=== PATIENT | male | born 1945 | race Caucasian/White ===

== ENCOUNTER 2017-10-21 10:03 | Outpatient (CLI) | payer OTHER | END 2017-10-21 10:04 | disposition home or self-care (01) | LOC: RT 10:03 | PROVIDERS: ATTEND Internal Medicine Gastroenterology | DX: E11.9 Type 2 diabetes mellitus without complications (principal) | CPT/HCPCS: 93005 ==

== ENCOUNTER 2017-10-30 07:08 | Day surgery (SDC) | payer OTHER ==
[2017-10-30] MEDS ORDERED: LACTATED RINGERS 1,000 ML IV ONE (08:04)
[2017-10-30] MEDS ORDERED: fentaNYL 100 MCG/2 ML VIAL IVP ONE (09:15)
[2017-10-30] MEDS ORDERED: MIDAZOLAM 2 MG/2 ML VIAL IVP ONE (09:15)
[2017-10-30] MEDS ORDERED: PROPOFOL 200 MG/20 ML VIAL IVP ONE (09:15)
[2017-10-30 09:33] VITALS: BP 122/76
== END 2017-10-30 07:09 | disposition home or self-care (01) ==
LOC: SDS 07:08
PROVIDERS: ATTEND Internal Medicine Gastroenterology
PROC: 0DJD8ZZ Inspection of Lower Intestinal Tract, Via Natural or Artificial Opening Endoscopic (ICD-10-PCS; principal; 2017-10-30 08:30)
DX: Z12.11 Encounter for screening for malignant neoplasm of colon (principal); K57.30 Diverticulosis of large intestine without perforation or abscess without bleeding; I10 Essential (primary) hypertension; E78.5 Hyperlipidemia, unspecified; E11.42 Type 2 diabetes mellitus with diabetic polyneuropathy; Z79.84 Long term (current) use of oral hypoglycemic drugs; Z79.4 Long term (current) use of insulin; E66.9 Obesity, unspecified; Z68.33 Body mass index [BMI] 33.0-33.9, adult; K21.9 Gastro-esophageal reflux disease without esophagitis; R07.89 Other chest pain
CPT/HCPCS: 45378; J7120

== ENCOUNTER 2018-10-05 11:24 | Outpatient (CLI) | payer MEDICARE | END 2018-10-05 11:25 | disposition critical access hospital (66) | LOC: EMS 11:24 | PROVIDERS: ATTEND Surgery | DX: R55 Syncope and collapse (principal) | CPT/HCPCS: A0425; A0427 ==

== ENCOUNTER 2018-10-27 10:16 | Outpatient (CLI) | payer MEDICARE ==
--- NOTE | 2018-10-27 12:56 | XRAY Report ---
Reason: UNSPECIFIED ABNORMALITIES OF BREATHING,OTHER MALAI Procedure Date: 10/27/2018 Accession Number: [id number] / [id number] Procedure: XRN - Chest 2 View X-Ray CPT Code: 37169 FULL RESULT: EXAM: CHEST RADIOGRAPHY EXAM DATE: 10/27/2018 10:49 AM. CLINICAL HISTORY: Unspecified abnormalities of breathing, other malaise. COMPARISON: CHEST 1 VIEW 10/05/2018 12:21 PM. TECHNIQUE: 2 views. FINDINGS: Lungs/Pleura: No focal opacities evident. No pleural effusion. No pneumothorax. Normal volumes. Mediastinum: Heart and mediastinal contours are notable for aortic calcification. Other: None. IMPRESSION: No acute cardiopulmonary abnormality demonstrated. RADIA
== END 2018-10-27 10:17 | disposition home or self-care (01) ==
LOC: DI.N 10:16
PROVIDERS: ATTEND Internal Medicine
DX: R53.81 Other malaise (principal); R06.9 Unspecified abnormalities of breathing; R09.89 Other specified symptoms and signs involving the circulatory and respiratory systems
CPT/HCPCS: 71046

== ENCOUNTER 2018-11-25 08:42 | Outpatient (CLI) | payer MEDICARE | END 2018-11-25 08:43 | disposition critical access hospital (66) | LOC: EMS 08:42 | PROVIDERS: ATTEND Surgery | DX: R55 Syncope and collapse (principal); S40.212A Abrasion of left shoulder, initial encounter; W18.39XA Other fall on same level, initial encounter; Y93.E1 Activity, personal bathing and showering; Y92.002 Bathroom of unspecified non-institutional (private) residence as the place of occurrence of the external cause | CPT/HCPCS: A0425; A0427 ==

== ENCOUNTER 2018-11-25 08:58 | Emergency (ER) | payer MEDICARE ==
--- NOTE | 2018-11-25 09:06 | ED Physician Documentation ---
History of Present Illness - Stated complaint Stated Complaint: FALL - History obtained from History obtained from: Patient - History of Present Illness Timing: Prior to arrival - Additonal information Additional information: Patient is a 73-year-old male with history of diabetes presenting with hypoglycemia. Patient reports that he took his insulin earlier today and then did not eat his breakfast as usual as he was distracted by taking care of his . Patient then went into the shower and felt extremely shaky and had a difficult time standing up. Patient reports that he somewhat fell or sat to the ground but denies injuries.Patient denies headache, nausea, vomiting, chest pain, difficulty breathing, abdominal pain, urinary changes, or stool changes. Patient was at his normal state of health without complaint prior to this incident. Review of Systems Constitutional: denies: Fever Cardiac: denies: Chest pain / pressure Respiratory: denies: Dyspnea GI: denies: Abdominal Pain, Nausea, Vomiting, Diarrhea : denies: Dysuria Neurologic: denies: Generalized weakness, Numbness, Headache PD PAST MEDICAL HISTORY - Past Medical History Cardiovascular: None, Hypertension, High cholesterol, Other (History of recurrent syncopal events in the past) Respiratory: Asthma Endocrine/Autoimmune: Type 1 diabetes GI: GERD : None HEENT: Other Psych: None Musculoskeletal: None Derm: None - Past Surgical History Ortho: Carpal Tunnel surgery HEENT: Other (Sinus surgery) - Present Medications Home Medications: Ambulatory Orders Medication Instructions Recorded Confirmed Aspirin [Aspirin EC] 81 mg PO DAILY 10/29/17 10/05/18 Insulin 70/30 Human [NovoLIN] 35 unit SUBQ BID 10/29/17 10/06/18 Omeprazole [PriLOSEC] 20 mg PO QDAC 10/29/17 10/06/18 Metformin HCl 1,000 mg PO 1200,1700 10/05/18 10/06/18 Cholecalciferol (Vitamin D3) 6,000 unit PO DAILY 10/06/18 10/06/18 [Vitamin D3] Guaifenesin [Mucinex] 600 mg PO BID #8 tab.er.12h 10/06/18 Red Yeast Rice 600 mg PO DAILY 10/06/18 10/06/18 levoFLOXacin [Levaquin] 500 mg PO DAILY #4 tablet 10/06/18 - Allergies Allergies/Adverse Reactions: Allergies Allergy/AdvReac Type Severity Reaction Status Date / Time atorvastatin Allergy Severe Hives Verified 11/25/18 09:07 hydrocortisone Allergy Severe Hives Verified 11/25/18 09:07 - Social History Does the pt smoke?: No Smoking Status: Never smoker - POLST Patient has POLST: No POLST Status: Full Code PD ED PE NORMAL - Vitals Vital signs reviewed: Yes - General General: Alert and oriented X 3, No acute distress, Well developed/nourished - HEENT HEENT: Atraumatic, Moist mucous membranes - Neck Neck: No bony TTP - Cardiac Cardiac: RRR, No murmur - Respiratory Respiratory: No respiratory distress, Clear bilaterally - Abdomen Abdomen: Normal bowel sounds, Soft, Non tender, Non distended - Derm Derm: Normal color, Warm and dry, No rash - Extremities Extremities: No deformity, No tenderness to palpate - Neuro Neuro: Alert and oriented X 3, No motor deficit, No sensory deficit - Psych Psych: Normal mood, Normal affect Results - Vitals Vitals: Vital Signs - 24 hr 11/25/18 11/25/18 08:59 09:18 Temperature 36.9 C Heart Rate 96 110 H Respiratory 19 17 Rate Blood Pressure 117/71 117/71 O2 Saturation 94 93 Oxygen O2 Source Room air - EKG (time done) 0908 Rate: Rate (enter#) (95) Rhythm: NSR Intervals: RBBB - Labs Labs: Laboratory Tests 11/25/18 11/25/18 09:23 09:23 WBC 8.9 RBC 4.59 L Hgb 12.9 L Hct 40.3 L MCV 87.8 MCH 28.1 MCHC 32.0 RDW 13.4 Plt Count 291 MPV 9.3 Neut # (Auto) 5.5 Lymph # (Auto) 2.6 [place] # (Auto) 0.5 Eos # (Auto) 0.1 Baso # (Auto) 0.1 Absolute Nucleated RBC 0.00 Nucleated RBC % 0.0 Sodium 142 Potassium 3.6 Chloride 103 Carbon Dioxide 26 Anion Gap 13.0 BUN 13 Creatinine 1.0 Estimated GFR (MDRD) 73 L Glucose 100 Calcium 8.8 Total Bilirubin 0.7 AST 19 ALT 15 Alkaline Phosphatase 36 L Total Protein 7.4 Albumin 4.0 Globulin 3.4 Albumin/Globulin Ratio 1.2 Lipase 27 PD MEDICAL DECISION MAKING - ED course Complexity details: reviewed results, re-evaluated patient, considered differential, d/w patient ED course: Patient presenting with hypoglycemia likely induced by taking his own insulin without eating. Patient reported feeling lightheaded and shaky, but did not sustain significant trauma or injury. Physical exam is extremely unremarkable with no evidence of trauma, neurological deficit, or systemic infection. Patient received glucose by EMS and was able to tolerate oral intake in the ED without issue and repeat blood sugars appropriate. Additional screening lab work relatively unremarkable as well. At this time, do not feel patient requires other invasive testing, imaging, but can discharge home with family. Discussed insulin regimen, return precautions, appropriate follow-up. Departure - Departure Disposition: 01 Home, Self Care Clinical Impression: Hypoglycemia Condition: Good Instructions: Hypoglycemia Follow-Up: Juan Grider MD [Primary Care Provider] - Within 3 Days Comments: Please be aware of insulin intake and eating appropriate amount of food with such. Please continue other home medications. Follow-up with primary care physician in next 2 to 3 days and return to ED sooner if experience worsening symptoms or have other concerns.
[2018-11-25 09:34] LABS: BASOPHILS # (AUTO) 0.1 10^3/uL (0.0-0.1); BASOPHILS % (AUTO) 0.7 %; EOSINOPHILS # (AUTO) 0.1 10^3/uL (0.0-0.7); EOSINOPHILS % (AUTO) 1.5 %; HGB - HEMOGLOBIN 12.9 g/dL (14.0-18.0); LYMPHOCYTES # (AUTO) 2.6 10^3/uL (1.5-3.5); LYMPHOCYTES % (AUTO) 29.7 %; MEAN CORPUSCULAR HEMOGLOBIN 28.1 pg (27.0-31.0); MEAN CORPUSCULAR VOLUME 87.8 fL (80.0-94.0); MEAN PLATELET VOLUME 9.3 fL (7.4-11.4); MONOCYTES # (AUTO) 0.5 10^3/uL (0.0-1.0); MONOCYTES % (AUTO) 6.1 %; NEUTROPHILS # (AUTO) 5.5 10^3/uL (1.5-6.6); NEUTROPHILS % (AUTO) 61.6 %; PLT - PLATELET COUNT 291 10^3/uL (130-450); RED BLOOD COUNT 4.59 10^6/uL (4.70-6.10); RED CELL DISTRIBUTION WIDTH 13.4 % (12.0-15.0); WHITE BLOOD COUNT 8.9 x10^3/uL (4.8-10.8)
[2018-11-25 09:42] LABS: ALBUMIN/GLOBULIN RATIO 1.2 (1.0-2.2); BILIRUBIN,TOTAL 0.7 mg/dL (0.2-1.0); CALCIUM 8.8 mg/dL (8.5-10.3); TOTAL PROTEIN 7.4 g/dL (6.7-8.2)
[2018-11-25 10:59] VITALS: BP 136/79
== END 2018-11-25 11:08 | disposition home or self-care (01) ==
LOC: EDUNIT# → ED 08:58
DX: E10.649 Type 1 diabetes mellitus with hypoglycemia without coma (principal); Z79.4 Long term (current) use of insulin; I10 Essential (primary) hypertension; I45.10 Unspecified right bundle-branch block; Z79.82 Long term (current) use of aspirin
CPT/HCPCS: 36415; 80053; 83690; 85025; 93005; 99282; 99283

== ENCOUNTER 2018-12-05 13:11 | Outpatient (CLI) | payer MEDICARE | END 2018-12-05 13:12 | disposition home or self-care (01) | LOC: RT 13:11 | PROVIDERS: ATTEND Internal Medicine | DX: R06.9 Unspecified abnormalities of breathing (principal) | CPT/HCPCS: 94664 ==

== ENCOUNTER 2020-07-01 17:23 | Emergency (ER) | payer MEDICARE ==
[2020-07-01 17:29] VITALS: BP 150/67
[2020-07-01] MEDS ORDERED: BUFFERED LIDOCAINE 10 ML SYRINGE SUBQ STA (17:35)
[2020-07-01] MEDS ORDERED: TETANUS/DIPHTHERIA/PERTUSSIS 0.5 ML SYRINGE IM ONE (17:35)
--- NOTE | 2020-07-01 17:52 | ED Physician Documentation ---
PD HPI UPPER EXT INJURY - Stated complaint Stated Complaint: RIGHT HAND LAC - Chief complaint Chief Complaint: Laceration - History obtained from History obtained from: Patient - History of Present Illness Location: Right, Finger (3rd) Type of injury: Laceration Where injury occurred: Home Timing - onset: How many hours ago (5) Timing - duration: Hours (5) Timing - details: Abrupt onset Pain level max: 3 Pain level now: 1 Improved by: Rest Worsened by: Moving, Palpating Associated symptoms: No: Weakness, Numbness, Tingling, Swelling Contributing factors: No: Anticoagulated - Additonal information Additional information: Pt is right-handed. Unknown last tetanus shot. States he was cutting a board with a chop saw when the board became stuck, when he tried to dislodge the board of the blade cut his finger. Review of Systems Constitutional: denies: Fever, Chills GI: denies: Diarrhea Skin: denies: Rash Musculoskeletal: denies: Neck pain, Back pain Neurologic: denies: Headache PD PAST MEDICAL HISTORY - Past Medical History Past Medical History: Yes Cardiovascular: Hypertension, High cholesterol, Other Respiratory: Asthma Neuro: None Endocrine/Autoimmune: Type 1 diabetes GI: GERD : None HEENT: Other Psych: None Musculoskeletal: None Derm: None - Past Surgical History Past Surgical History: Yes Ortho: Carpal Tunnel surgery HEENT: Other - Present Medications Home Medications: Ambulatory Orders Medication Instructions Recorded Confirmed Aspirin [Aspirin EC] 81 mg PO DAILY 10/29/17 07/01/20 Insulin 70/30 Human [NovoLIN] 40 unit SUBQ BID 10/29/17 07/01/20 Omeprazole [PriLOSEC] 20 mg PO QDAC 10/29/17 07/01/20 Metformin HCl 1,000 mg PO 1200,1700 10/05/18 07/01/20 Cholecalciferol (Vitamin D3) 6,000 unit PO DAILY 10/06/18 07/01/20 [Vitamin D3] Red Yeast Rice 600 mg PO DAILY 10/06/18 07/01/20 Lisinopril [Prinivil] 5 mg PO DAILY 07/01/20 07/01/20 - Allergies Allergies/Adverse Reactions: Allergies Allergy/AdvReac Type Severity Reaction Status Date / Time atorvastatin Allergy Severe Hives Verified 07/01/20 17:26 hydrocortisone Allergy Severe Hives Verified 02/27/21 17:26 - Social History Does the pt smoke?: No Smoking Status: Never smoker Does the pt drink ETOH?: No Does the pt have substance abuse?: No - Immunizations Immunizations are current?: No Immunizations: TDAP >10years/unknown - POLST Patient has POLST: No POLST Status: Full Code PD ED PE NORMAL - Vitals Vital signs reviewed: Yes - General General: Alert and oriented X 3, No acute distress, Well developed/nourished - HEENT HEENT: Moist mucous membranes - Derm Derm: Warm and dry - Extremities Extremities: Other (1.5 cm laceration over the PIP joint of the right third digit, dorsum of the hand. Neurovascularly intact. No tendon injury.) - Neuro Neuro: Alert and oriented X 3 - Psych Psych: Normal mood, Normal affect Results - Vitals Vitals: Vital Signs - 24 hr 07/01/20 17:26 Temperature 36.4 C L Heart Rate 103 H Respiratory 16 Rate Blood Pressure 150/67 H O2 Saturation 99 Oxygen O2 Source Room air Procedures - Laceration (location) R 3rd digit Length in cm: 1.5 Wound type: Curved, Into subcut fat, Clean Neurovascular status: Sensory intact, Motor intact, Vascular intact Tendon involvement: Tendon intact (tested vs resistance) Anesthesia: Lidocaine 1%, With bicarb Wound preparation: Irrigated copiously NS, Wound explored, To the base Skin layer closure: Nylon, Interrupted, Size #-0 - enter number (4), Sutures - enter # (4) Other: Patient tolerated well, No complications, Neurovascular intact, Dressing applied, Tetanus booster given PD MEDICAL DECISION MAKING - ED course Complexity details: considered differential, d/w patient ED course: Laceration repaired. Tolerated well. No other injuries. Warnings of infection and instructions on wound care given at bedside. Also counseled on how to minimize scarring. Patient counseled regarding signs and symptoms for which I believe and urgent re-evaluation would be necessary. Patient with good understanding of and agreement to plan and is comfortable going home at this time This document was made in part using voice recognition software. While efforts are made to proofread this document, sound alike and grammatical errors may occur. Departure - Departure Disposition: 01 Home, Self Care Clinical Impression: Laceration of finger Qualifiers: Encounter type: initial encounter Finger: middle finger Damage to nail status: without damage Foreign body presence: without foreign body Laterality: right Qualified Code(s): S61.212A - Laceration without foreign body of right middle finger without damage to nail, initial encounter Condition: Good Instructions: ED Laceration Hand Follow-Up: Juan Grider MD [Primary Care Provider] - Comments: Follow-up with your doctor in 10 to 14 days for suture removal. Return sooner if you notice redness, swelling or drainage from the wound. You were given a tetanus shot tonight as well. Keep the wound clean.
== END 2020-07-01 18:02 | disposition home or self-care (01) ==
LOC: ED 17:23
DX: S61.212A Laceration without foreign body of right middle finger without damage to nail, initial encounter (principal); W29.8XXA Contact with other powered hand tools and household machinery, initial encounter; Y92.009 Unspecified place in unspecified non-institutional (private) residence as the place of occurrence of the external cause; I10 Essential (primary) hypertension; E10.9 Type 1 diabetes mellitus without complications; Z79.4 Long term (current) use of insulin; Z23 Encounter for immunization
CPT/HCPCS: 12001; 90471; 99282; 99283

== ENCOUNTER 2021-02-08 13:18 | Outpatient (CLI) | payer MEDICARE | END 2021-02-08 13:19 | disposition critical access hospital (66) | LOC: EMS 13:18 | DX: R42 Dizziness and giddiness (principal); R53.83 Other fatigue; R26.81 Unsteadiness on feet | CPT/HCPCS: A0425; A0427 ==

== ENCOUNTER 2021-02-08 14:08 | Emergency (ER) | payer MEDICARE ==
--- NOTE | 2021-02-08 14:50 | ED Physician Documentation ---
PD HPI SYNCOPE - Stated complaint Stated Complaint: DIZZY - Chief complaint Chief Complaint: Neuro - History obtained from History obtained from: Patient, Family - History of Present Illness Witnessed: Unwitnessed Timing - onset: Enter time (1300), Today Duration: Minutes Preceding symptoms: Vision changes, Light headed, Generalized weakness Associated symptoms: No: Seizure, Incontinant of urine, Incontinant of stool, Headache, Vision changes, Diaphoresis, Dyspnea, Nausea / vomiting, Abdominal pain Contributing factors: Decreased PO intake, Other (in the shower) Injury occurred: None Similar symptoms before: Diagnosis (dehydration) Recently seen: Not recently seen - Additional information Additional information: 75-year-old male with history of type 2 diabetes has been feeling exhausted the past several days and last night he got up out of bed at 1:00 in the morning to go to the bathroom felt super exhausted he was able to get back into bed and when he went to get into the shower this afternoon at 1:00 in the afternoon he had a near syncopal episode. He is come to the emergency department now assisted by his daughter who is a surgical garment fitter here at the hospital. The patient indicates that he has had some increased frequency of urination he does check his sugars he thinks they have generally been under 180.He has had prior episodes of exhaustion similar to this he is uncertain why this happened he did have to be in the hospital once for it. Review of Systems Constitutional: denies: Fever Ears: denies: Ear pain Nose: reports: Rhinorrhea / runny nose, Congestion, Other (improved with allergy medications) Throat: denies: Sore throat Cardiac: denies: Chest pain / pressure, Palpitations Respiratory: denies: Dyspnea, Cough GI: denies: Abdominal Pain, Nausea, Vomiting, Constipation, Diarrhea : reports: Frequency. denies: Dysuria Skin: denies: Rash Musculoskeletal: denies: Neck pain, Back pain, Extremity pain Neurologic: reports: Generalized weakness, Near syncope. denies: Focal weakness, Numbness, Difficulty speaking, Altered mental status, Headache, Head injury, Reviewed and negative Psychiatric: denies: Depressed Endocrine: reports: Polyuria PD PAST MEDICAL HISTORY - Past Medical History Past Medical History: Yes Cardiovascular: Hypertension, High cholesterol, Other Respiratory: Asthma Neuro: None Endocrine/Autoimmune: Type 1 diabetes GI: GERD : None HEENT: Other Psych: None Musculoskeletal: None Derm: None - Past Surgical History Past Surgical History: Yes Ortho: Carpal Tunnel surgery HEENT: Other - Present Medications Home Medications: Ambulatory Orders Medication Instructions Recorded Confirmed Aspirin [Aspirin EC] 81 mg PO DAILY 10/29/17 07/01/20 Insulin 70/30 Human [NovoLIN] 40 unit SUBQ BID 10/29/17 07/01/20 Omeprazole [PriLOSEC] 20 mg PO QDAC 10/29/17 07/01/20 Metformin HCl 1,000 mg PO 1200,1700 10/05/18 07/01/20 Cholecalciferol (Vitamin D3) 6,000 unit PO DAILY 10/06/18 07/01/20 [Vitamin D3] Red Yeast Rice 600 mg PO DAILY 10/06/18 07/01/20 lisinopriL [Prinivil] 5 mg PO DAILY 07/01/20 07/01/20 - Allergies Allergies/Adverse Reactions: Allergies Allergy/AdvReac Type Severity Reaction Status Date / Time atorvastatin Allergy Severe Hives Verified 02/08/21 14:14 hydrocortisone Allergy Severe Hives Verified 02/08/21 14:14 - Social History Does the pt smoke?: No Smoking Status: Never smoker Does the pt drink ETOH?: No Does the pt have substance abuse?: No - Immunizations Immunizations are current?: No Immunizations: TDAP >10years/unknown - POLST Patient has POLST: No POLST Status: Full Code PD ED PE NORMAL - Vitals Vital signs reviewed: Yes (normal ) - General General: Alert and oriented X 3, No acute distress, Well developed/nourished - HEENT HEENT: Atraumatic, PERRL, EOMI - Neck Neck: Supple, no meningeal sign, No bony TTP - Cardiac Cardiac: No murmur, Other (tachy to 100) - Respiratory Respiratory: No respiratory distress, Clear bilaterally - Abdomen Abdomen: Normal bowel sounds, Soft, Non tender, Non distended, No organomegaly - Back Back: No CVA TTP, No spinal TTP - Derm Derm: Normal color, Warm and dry, No rash - Extremities Extremities: No deformity, No edema - Neuro Neuro: Alert and oriented X 3, 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, No motor deficit, No sensory deficit, Normal speech Eye Opening: Spontaneous Motor: Obeys Commands Verbal: Oriented GCS Score: 15 - Psych Psych: Normal mood, Normal affect Results - Vitals Vitals: Vital Signs - 24 hr 02/08/21 02/08/21 02/08/21 14:11 16:17 18:04 Temperature 36.9 C 37.3 C Heart Rate 98 99 96 Respiratory 21 17 14 Rate Blood Pressure 127/70 153/84 H 153/84 H O2 Saturation 95 96 98 Oxygen O2 Source Room air - EKG (time done) 1418 Rate: Rate (enter#) (98) Intervals: RBBB Ischemia: Q waves Compare to prior EKG: Unchanged from prior EKG (SPT 11-25-20 no sig change) Computer interpretation: Agree with computer - Labs Labs: Laboratory Tests 02/08/21 02/08/21 02/08/21 14:30 14:30 14:30 WBC 10.1 RBC 4.38 L Hgb 12.0 L Hct 38.1 L MCV 87.0 MCH 27.4 MCHC 31.5 L RDW 13.7 Plt Count 296 MPV 10.1 Neut # (Auto) 7.8 H Lymph # (Auto) 1.6 [place] # (Auto) 0.5 Eos # (Auto) 0.1 Baso # (Auto) 0.1 Absolute Nucleated RBC 0.00 Nucleated RBC % 0.0 Sodium 142 Potassium 3.3 L Chloride 105 Carbon Dioxide 25 Anion Gap 12.0 BUN 14 Creatinine 1.3 H Estimated GFR (MDRD) 54 L Glucose 208 H Calcium 8.6 Total Bilirubin 0.7 AST 21 ALT 22 Alkaline Phosphatase 41 L Troponin I High Sens 14.1 Total Protein 6.8 Albumin 3.7 Globulin 3.1 Albumin/Globulin Ratio 1.2 Lipase 34 Procedures - IVC sono (time) 1450 Bedside IVC sono: IVC measures (cm) (0.66), Profound dehydration (est 3 lter deficit) PD MEDICAL DECISION MAKING - ED course Complexity details: reviewed old records, reviewed results, re-evaluated patient, considered differential, d/w patient, d/w family ED course: 75-year-old diabetic male complains of a feeling of extreme fatigue and exhaustion with near syncope after getting out of the shower today. He is found to be dehydrated on interrogation the inferior vena cava and he does have type 2 diabetes his sugar is running 207 here in the emergency department I suspect he has diuresed himself to dehydration. He is administered intravenous saline here with improvement. The patient felt that he had improvement after administration of 200 mL of fluid. His inferior vena cava was 0.66 indicating a deficit of nearly 3 L. This is considered profound dehydration and I suspect his symptoms are related to this. Fluid is infused and the patient feels much improved. 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
[2021-02-08] MEDS ORDERED: SODIUM CHLORIDE 0.9% 1,000 ML IV STA ×2 (14:51→16:21)
[2021-02-08 14:58] LABS: BASOPHILS # (AUTO) 0.1 10^3/uL (0.0-0.1); BASOPHILS % (AUTO) 0.5 %; EOSINOPHILS # (AUTO) 0.1 10^3/uL (0.0-0.7); EOSINOPHILS % (AUTO) 0.7 %; HCT - HEMATOCRIT 38.1 % (42.0-52.0); LYMPHOCYTES # (AUTO) 1.6 10^3/uL (1.5-3.5); LYMPHOCYTES % (AUTO) 16.1 %; MEAN CORPUSCULAR HEMOGLOBIN 27.4 pg (27.0-31.0); MEAN CORPUSCULAR HGB CONC 31.5 g/dL (32.0-36.0); MEAN PLATELET VOLUME 10.1 fL (7.4-11.4); MONOCYTES # (AUTO) 0.5 10^3/uL (0.0-1.0); MONOCYTES % (AUTO) 4.7 %; NEUTROPHILS # (AUTO) 7.8 10^3/uL (1.5-6.6); NEUTROPHILS % (AUTO) 77.4 %; PLT - PLATELET COUNT 296 10^3/uL (130-450); RED BLOOD COUNT 4.38 10^6/uL (4.70-6.10); RED CELL DISTRIBUTION WIDTH 13.7 % (12.0-15.0); WHITE BLOOD COUNT 10.1 x10^3/uL (4.8-10.8)
[2021-02-08 15:12] LABS: ALBUMIN 3.7 g/dL (3.2-5.5); ALBUMIN/GLOBULIN RATIO 1.2 (1.0-2.2); BILIRUBIN,TOTAL 0.7 mg/dL (0.2-1.0); CALCIUM 8.6 mg/dL (8.5-10.3); CREATININE 1.3 mg/dL (0.6-1.2); POTASSIUM 3.3 mmol/L (3.5-5.0); TOTAL PROTEIN 6.8 g/dL (6.7-8.2)
[2021-02-08] MEDS ORDERED: POTASSIUM CHLOR 10 MEQ/100 ML 10 MEQ/100 ML BAG IV ONE (15:41)
[2021-02-08 16:18] VITALS: BP 153/84
== END 2021-02-08 18:05 | disposition home or self-care (01) ==
LOC: EDUNIT# → ED 14:08
DX: E86.0 Dehydration (principal); R55 Syncope and collapse; E11.65 Type 2 diabetes mellitus with hyperglycemia; Z79.4 Long term (current) use of insulin; Z79.84 Long term (current) use of oral hypoglycemic drugs; I45.10 Unspecified right bundle-branch block; I10 Essential (primary) hypertension; Z79.82 Long term (current) use of aspirin
CPT/HCPCS: 36415; 80053; 83690; 84484; 85025; 93005; 96360; 96361; 99284

== ENCOUNTER 2022-08-01 18:41 | Outpatient (CLI) | payer MEDICARE | END 2022-08-01 18:42 | disposition EMS.NT | LOC: EMS 18:41 | DX: S20.319A Abrasion of unspecified front wall of thorax, initial encounter (principal); M54.9 Dorsalgia, unspecified; W17.89XA Other fall from one level to another, initial encounter; Y92.008 Other place in unspecified non-institutional (private) residence as the place of occurrence of the external cause ==

== ENCOUNTER 2022-08-05 11:52 | Emergency (ER) | payer MEDICARE ==
--- NOTE | 2022-08-05 12:13 | ED Physician Documentation ---
PD HPI UPPER EXT INJURY - Stated complaint Stated Complaint: L ELBOW PX S/P FALL - Chief complaint Chief Complaint: Trauma Ext - History obtained from History obtained from: Patient - Additonal information Additional information: 77-year-old male presents with left elbow pain several days after falling out of his attic. He fell onto the ground landing on his left shoulder and left side. EMS was apparently called at that time and he was checked out And he felt he did not need to come into the hospital at that time. He did not hit his head or lose consciousness, and he denies any head injury, neck or back pain, or other extremity pain. He presents now with worsening left elbow pain. He is also noted left elbow swelling. He sustained some small abrasions when he fell and notes some mild redness around the left Elbow. It is particularly uncomfortable if he tries to extend it completely. It is more comfortable if he holds it at a 90 degree angle close to his body. It is tender if It gets touched or bumped. He has not attempted any medication or other treatment for this issue. He has not had a fever or chills, chest pain or difficulty breathing abdominal pain nausea vomiting diarrhea, weakness, and has had no change in his mental status. Review of Systems Constitutional: reports: Reviewed and negative Cardiac: reports: Reviewed and negative Respiratory: reports: Reviewed and negative GI: reports: Reviewed and negative : reports: Reviewed and negative Skin: reports: Abrasion (s) Musculoskeletal: reports: Extremity pain, Joint pain, Joint swelling Neurologic: reports: Reviewed and negative PD PAST MEDICAL HISTORY - Past Medical History Past Medical History: Yes Cardiovascular: Hypertension, High cholesterol, Other Respiratory: Asthma Neuro: None Endocrine/Autoimmune: Type 1 diabetes GI: GERD : None HEENT: Other Psych: None Musculoskeletal: None Derm: None - Past Surgical History Past Surgical History: Yes Ortho: Carpal Tunnel surgery HEENT: Other - Present Medications Home Medications: Ambulatory Orders Medication Instructions Recorded Confirmed Aspirin [Aspirin EC] 81 mg PO DAILY 10/29/17 08/05/22 Insulin 70/30 Human [NovoLIN] 40 unit SUBQ BID 10/29/17 08/05/22 Omeprazole [PriLOSEC] 20 mg PO QDAC 10/29/17 08/05/22 Metformin HCl 1,000 mg PO BID 10/05/18 08/05/22 Cholecalciferol (Vitamin D3) 6,000 unit PO DAILY 10/06/18 08/05/22 [Vitamin D3] Red Yeast Rice 600 mg PO DAILY 10/06/18 08/05/22 lisinopriL [Prinivil] 2.5 mg PO DAILY 07/01/20 08/05/22 Doxycycline [Vibramycin] 100 mg PO BID #20 tablet 08/05/22 cephALEXin [Keflex] 500 mg PO Q6H #28 cap 08/05/22 - Allergies Allergies/Adverse Reactions: Allergies Allergy/AdvReac Type Severity Reaction Status Date / Time atorvastatin Allergy Severe Hives Verified 08/05/22 12:04 hydrocortisone Allergy Severe Hives Verified 08/05/22 12:04 - Social History Does the pt smoke?: No Smoking Status: Never smoker Does the pt drink ETOH?: No Does the pt have substance abuse?: No - Immunizations Immunizations are current?: No Immunizations: TDAP >10years/unknown - POLST Patient has POLST: No POLST Status: Full Code PD ED PE NORMAL - Vitals Vital signs reviewed: Yes - General General: Alert and oriented X 3, No acute distress, Well developed/nourished - HEENT HEENT: Atraumatic, Pharynx benign - Neck Neck: Supple, no meningeal sign, No JVD - Cardiac Cardiac: RRR, No murmur - Respiratory Respiratory: No respiratory distress, Clear bilaterally - Abdomen Abdomen: Normal bowel sounds, Soft - Derm Derm: Normal color, Warm and dry, Other (There are 2 abrasions 1 on the left humerus and 1 on the left elbow, about 1 to 2 cm in diameter, dry and crusted. There is very mild redness around the left elbow, and tender to touch. It is not hot to touch.) - Extremities Extremities: Other (Left elbow is exquisitely tender, he can Extend to about 150 degrees, and flex completely. It is most comfortable at about 90 degrees.) - Neuro Neuro: Alert and oriented X 3 Eye Opening: Spontaneous Motor: Obeys Commands Verbal: Oriented GCS Score: 15 Results - Vitals Vitals: Vital Signs - 24 hr 08/05/22 12:04 Temperature 37 C Heart Rate 102 H Respiratory 18 Rate Blood Pressure 146/74 H O2 Saturation 97 Oxygen O2 Source Room air - Labs Labs: Laboratory Tests 08/05/22 08/05/22 08/05/22 12:29 12:29 12:29 WBC 11.8 H RBC 4.19 L Hgb 11.2 L Hct 35.8 L MCV 85.4 MCH 26.7 L MCHC 31.3 L RDW 14.8 Plt Count 275 MPV 9.2 Neut # (Auto) 8.8 H Lymph # (Auto) 2.2 [place] # (Auto) 0.7 Eos # (Auto) 0.0 Baso # (Auto) 0.0 Absolute Nucleated RBC 0.00 Nucleated RBC % 0.0 ESR 31 H Sodium 135 Potassium 3.9 Chloride 104 Carbon Dioxide 27 Anion Gap 4.0 L BUN 13 Creatinine 1.1 Estimated GFR (MDRD) 65 L Glucose 254 H Calcium 8.5 C-Reactive Protein 6.6 H - Rads (name of study) No standard instances Relevant Findings:: Final report received PD Medical Decision Making - ED course Complexity details: reviewed results, re-evaluated patient, considered differential, d/w patient ED course: This is a 77-year-old male who presents with left elbow pain after a fall several days ago. He sustained some small abrasions to the left elbow and now has some localized redness and increased pain in the elbow. He is well- appearing on physical exam, afebrile and in no acute distress, nontoxic- appearing. Differentials considered included cellulitis, septic arthritis, bursitis, or elbow fracture. I obtained an x-ray which shows signs of possible cellulitis, no fracture. We obtained labs which show a slight elevation in the white blood cell count at 11.8, otherwise stable CBC and CMP, his ESR and CRP are just mildly elevated. The patient was given a dose of Toradol with improvement in his pain and he is able to flex and extend the elbow better. I have lower suspicion for septic arthritis given his improved range of motion, and minimal warmth around that elbow. I suspect this is a cellulitis. We have started the patient on ceftriaxone here and I will discharge him on Doxycycline and Keflex. He was placed in a sling but advised to do range of motion activity several times throughout the day. He was advised to take ibuprofen or Tylenol for pain. He was instructed to return to the ER if he developed a fever, increasing redness or swelling or increasing pain of the left elbow despite treatment. It was recommended that he try to follow-up with his primary doctor within the next week or so to ensure clinical improvement. Departure - Departure Disposition: 01 Home, Self Care Clinical Impression: Cellulitis Qualifiers: Site of cellulitis: extremity Site of cellulitis of extremity: upper extremity Laterality: left Qualified Code(s): L03.114 - Cellulitis of left upper limb Condition: Good Instructions: ED Infec Skin Cellulitis Prescriptions: cephALEXin [Keflex] 500 mg PO Q6H #28 cap Doxycycline [Vibramycin] 100 mg PO BID #20 tablet Comments: You presented with left arm redness and swelling. This is likely due to a skin infection called cellulitis. There is no sign of fracture or broken bone on the elbow x-ray. I have started you on antibiotics And it is important that you take both of them As prescribed For the complete course. If you have increasing redness, swelling, pain or fever or increasing pain in the left elbow, please return to the hospital. It is possible for the infection to get into the joint space requiring additional intervention. You can take Tylenol and ibuprofen for pain and swelling. Please schedule a follow-up with your primary doctor in next week to ensure improvement in your symptoms.
[2022-08-05 12:34] LABS: BASOPHILS % (AUTO) 0.3 %; EOSINOPHILS % (AUTO) 0.3 %; HCT - HEMATOCRIT 35.8 % (42.0-52.0); HGB - HEMOGLOBIN 11.2 g/dL (14.0-18.0); LYMPHOCYTES # (AUTO) 2.2 10^3/uL (1.5-3.5); LYMPHOCYTES % (AUTO) 18.7 %; MEAN CORPUSCULAR HEMOGLOBIN 26.7 pg (27.0-31.0); MEAN CORPUSCULAR HGB CONC 31.3 g/dL (32.0-36.0); MEAN CORPUSCULAR VOLUME 85.4 fL (80.0-94.0); MEAN PLATELET VOLUME 9.2 fL (7.4-11.4); MONOCYTES # (AUTO) 0.7 10^3/uL (0.0-1.0); MONOCYTES % (AUTO) 5.7 %; NEUTROPHILS # (AUTO) 8.8 10^3/uL (1.5-6.6); NEUTROPHILS % (AUTO) 74.6 %; PLT - PLATELET COUNT 275 10^3/uL (130-450); RED BLOOD COUNT 4.19 10^6/uL (4.70-6.10); RED CELL DISTRIBUTION WIDTH 14.8 % (12.0-15.0); WHITE BLOOD COUNT 11.8 x10^3/uL (4.8-10.8)
[2022-08-05 12:52] LABS: CALCIUM 8.5 mg/dL (8.5-10.3); CREATININE 1.1 mg/dL (0.6-1.2); CRP - C-REACTIVE PROTEIN 6.6 mg/dL (0-1.0); POTASSIUM 3.9 mmol/L (3.5-5.0)
--- NOTE | 2022-08-05 12:53 | XRAY Report ---
PROCEDURE: Elbow 3 View LT INDICATIONS: fall, pain/swelling/erythema TECHNIQUE: 3 views of the elbow were acquired. COMPARISON: None. FINDINGS: Bones: No fractures or dislocations. No suspicious bony lesions. Prominent olecranon spur as well as degenerative changes of the elbow are present. Soft tissues: No effusion. No suspicious soft tissue calcifications or masses. Soft tissue edema i s noted overlying the soft tissues of the forearm surrounding the elbow. IMPRESSION: Soft tissue edema which could be related to cellulitis and recommend clinical correlation. Degenerative changes at the elbow. No visualized acute fracture or dislocation. However, occult injur y cannot be excluded. Recommend short interval imaging follow-up in 7-10 days as clinically indicated for additional evaluation. Reviewed by: Julieta Dubois MD on 08/05/2022 12:52 PM PDT Approved by: Julieta Dubois MD on 08/05/2022 12:52 PM PDT Station ID: [id number]
[2022-08-05] MEDS ORDERED: cefTRIAXone 2 GM in SODIUM CHLORIDE 0.9% MINIBAG 100 ML IV STA (12:55)
[2022-08-05] MEDS ORDERED: SODIUM CHLORIDE 0.9% 500 ML IV STA (13:05)
[2022-08-05] MEDS ORDERED: KETOROLAC 30 MG/ML VIAL IVP STA (13:05)
[2022-08-05 14:02] VITALS: BP 147/76
== END 2022-08-05 14:10 | disposition home or self-care (01) ==
LOC: ED 11:52
DX: L03.114 Cellulitis of left upper limb (principal); I10 Essential (primary) hypertension; E10.9 Type 1 diabetes mellitus without complications; Z79.4 Long term (current) use of insulin
CPT/HCPCS: 36415; 80048; 85025; 85651; 86140; 96365; 96375; 99283

== ENCOUNTER 2022-08-07 05:35 | Emergency (ER) | payer MEDICARE ==
[2022-08-07 07:11] LABS: BASOPHILS % (AUTO) 0.3 %; EOSINOPHILS # (AUTO) 0.1 10^3/uL (0.0-0.7); EOSINOPHILS % (AUTO) 0.6 %; HCT - HEMATOCRIT 34.5 % (42.0-52.0); HGB - HEMOGLOBIN 10.6 g/dL (14.0-18.0); LYMPHOCYTES # (AUTO) 1.9 10^3/uL (1.5-3.5); LYMPHOCYTES % (AUTO) 17.3 %; MEAN CORPUSCULAR HGB CONC 30.7 g/dL (32.0-36.0); MEAN CORPUSCULAR VOLUME 87.8 fL (80.0-94.0); MEAN PLATELET VOLUME 9.6 fL (7.4-11.4); MONOCYTES # (AUTO) 0.5 10^3/uL (0.0-1.0); MONOCYTES % (AUTO) 4.6 %; NEUTROPHILS # (AUTO) 8.5 10^3/uL (1.5-6.6); NEUTROPHILS % (AUTO) 76.7 %; PLT - PLATELET COUNT 265 10^3/uL (130-450); RED BLOOD COUNT 3.93 10^6/uL (4.70-6.10); WHITE BLOOD COUNT 11.1 x10^3/uL (4.8-10.8)
[2022-08-07 07:24] LABS: CALCIUM 8.3 mg/dL (8.5-10.3); CREATININE 1.2 mg/dL (0.6-1.2); CRP - C-REACTIVE PROTEIN 12.2 mg/dL (0-1.0); POTASSIUM 3.9 mmol/L (3.5-5.0)
--- NOTE | 2022-08-07 07:26 | ED Physician Documentation ---
PD HPI SKIN - Stated complaint Stated Complaint: LFT ARM SWELLING - Chief complaint Chief Complaint: General - History obtained from History obtained from: Patient - History of Present Illness Timing - details: Gradual onset, Still present Location: LUE (lateral elbow infection after abrasion falling and scraping it.) Associated symptoms: No: Fever, N/V/D Recently seen: Emergency Dept (seen 3 days ago in er for redness/swelling lateral elbow. he states it has gotten worse the past 2 days. was slightly better after IV meds in eR. He is taking Keflex and Doxy regularly.) Review of Systems Constitutional: reports: Myalgias. denies: Fever, Chills Nose: denies: Rhinorrhea / runny nose, Congestion Throat: denies: Sore throat Respiratory: denies: Cough Neurologic: denies: Focal weakness, Numbness PD PAST MEDICAL HISTORY - Past Medical History Cardiovascular: Hypertension, High cholesterol, Other Respiratory: Asthma Neuro: None Endocrine/Autoimmune: Type 1 diabetes GI: GERD : None HEENT: Other Psych: None Musculoskeletal: None Derm: None - Past Surgical History Past Surgical History: Yes Ortho: Carpal Tunnel surgery HEENT: Other - Present Medications Home Medications: Ambulatory Orders Medication Instructions Recorded Confirmed Aspirin [Aspirin EC] 81 mg PO DAILY 10/29/17 08/05/22 Insulin 70/30 Human [NovoLIN] 40 unit SUBQ BID 10/29/17 08/05/22 Omeprazole [PriLOSEC] 20 mg PO QDAC 10/29/17 08/05/22 Metformin HCl 1,000 mg PO BID 10/05/18 08/05/22 Cholecalciferol (Vitamin D3) 6,000 unit PO DAILY 10/06/18 08/05/22 [Vitamin D3] Red Yeast Rice 600 mg PO DAILY 10/06/18 08/05/22 lisinopriL [Prinivil] 2.5 mg PO DAILY 07/01/20 08/05/22 Doxycycline [Vibramycin] 100 mg PO BID #20 tablet 08/05/22 cephALEXin [Keflex] 500 mg PO Q6H #28 cap 08/05/22 Clindamycin [Cleocin] 300 mg PO TID 7 Days #20 cap 08/07/22 - Allergies Allergies/Adverse Reactions: Allergies Allergy/AdvReac Type Severity Reaction Status Date / Time atorvastatin Allergy Severe Hives Verified 08/05/22 12:04 hydrocortisone Allergy Severe Hives Verified 08/05/22 12:04 - Social History Does the pt smoke?: No Smoking Status: Never smoker Does the pt drink ETOH?: No Does the pt have substance abuse?: No - Immunizations Immunizations are current?: No Immunizations: TDAP >10years/unknown - POLST Patient has POLST: No POLST Status: Full Code PD ED PE NORMAL - Vitals Vital signs reviewed: Yes - General General: Alert and oriented X 3, Well developed/nourished, Other (appears in pain. Acdepts opioid meds here but does not want script. ) - Cardiac Cardiac: No: RRR (regular but tachycardic) - Respiratory Respiratory: Clear bilaterally, Other (abrasion left chest wall without signs of infection. ) - Derm Derm: Normal color, Warm and dry - Extremities Extremities: Other (left elbow with marked redness, tender, warmth. swelling and red from upper triceps area to distal forearm on ulnar side. No effusion in elbow. ). No: Normal ROM s pain (left elbow considerably tender to flex. better for extending. ) - Neuro Neuro: Alert and oriented X 3, No motor deficit, No sensory deficit Results - Vitals Vitals: Vital Signs - 24 hr 08/07/22 08/07/22 08/07/22 05:43 07:06 11:43 Temperature 36.4 C L Heart Rate 103 H 91 79 Respiratory 96 H 18 18 Rate Blood Pressure 113/61 120/67 107/68 O2 Saturation 95 99 Oxygen O2 Source Room air - Labs Labs: Microbiology 08/07/22 07:55 Wound Culture - Preliminary Arm - Left Laboratory Tests 08/07/22 08/07/22 08/07/22 07:00 07:00 07:00 WBC 11.1 H RBC 3.93 L Hgb 10.6 L Hct 34.5 L MCV 87.8 MCH 27.0 MCHC 30.7 L RDW 15.0 Plt Count 265 MPV 9.6 Neut # (Auto) 8.5 H Lymph # (Auto) 1.9 [place] # (Auto) 0.5 Eos # (Auto) 0.1 Baso # (Auto) 0.0 Absolute Nucleated RBC 0.00 Nucleated RBC % 0.0 ESR 70 H Sodium 134 L Potassium 3.9 Chloride 102 Carbon Dioxide 25 Anion Gap 7.0 BUN 18 Creatinine 1.2 Estimated GFR (MDRD) 59 L Glucose 222 H Lactic Acid Calcium 8.3 L C-Reactive Protein 12.2 H 08/07/22 07:00 WBC RBC Hgb Hct MCV MCH MCHC RDW Plt Count MPV Neut # (Auto) Lymph # (Auto) [place] # (Auto) Eos # (Auto) Baso # (Auto) Absolute Nucleated RBC Nucleated RBC % ESR Sodium Potassium Chloride Carbon Dioxide Anion Gap BUN Creatinine Estimated GFR (MDRD) Glucose Lactic Acid 1.5 Calcium C-Reactive Protein - Rads (name of study) labs showing elevated wBC of 11. Relevant Findings:: Prelim report reviewed, EMP independent interpretation of test (bursal fluid noted. no other fluid collections. No joint effusion. Extensive cellulitic changes around elbow. No subcut air. ), See rad report PD Medical Decision Making - ED course Complexity details: reviewed results (no rim enhancing fluid collection. Cellulitic ahnges in soft tissue. WBC elevated at 11. ESr 70, CRP 12.), re- evaluated patient (the redness of forearm is actually looking less angry in the few hours patient was here. ), considered differential (celluliitis vs septic bursitis. Does not appear to be in elbow joint. Has worsened in 3 day sdespite PO Keflex/Doxy. there is small drainage now for culture though may be sterile due to current therapy. ), d/w hr business partner consultant (Dr. quintana, [facility], came to er and looked at patient. Does not think it needs I&D. Will see patient in follow up in office tomorrow or next day. ) Drug Therapy Requiring Monitoring for Toxicity: he got IV abx and also pain med dilaudid. he felt okay with those. He did have some generally itchiness without rash nor trouble breathing after the ct scan almost immediately after finishing the study. Presume histamine release from the iv contrast. given benadryl 12.5 mg iv. Exam of him did not show any swelling/edema of lips/throat. Departure - Departure Disposition: 01 Home, Self Care Clinical Impression: Septic bursitis of elbow, Left arm cellulitis Condition: Stable Record reviewed to determine appropriate education?: Yes Follow-Up: Juan Grider MD [Provider Admit Priv/Credential] - Abhi Quintana MD [Provider Admit Priv/Credential] - Prescriptions: Clindamycin [Cleocin] 300 mg PO TID 7 Days #20 cap Comments: I would stop the doxycycline and changed to clindamycin 3 times daily. Continue with doses today even though you get some in the IV this morning. I would also increase your cephalexin to 2 tablets (1000 mg total) 4 times daily for the next several days. Cleanse the area with soap and water and apply a nonstick dressing and a wrap to the area to protect it. Follow-up with Dr. Ruiz in the next 1 to 2 days in the office, call for an appointment. Return to the ER if worsening still. Tylenol ibuprofen if needed for pains. I sent your prescription to pharmacy. Discharge Date/Time: 08/07/22 11:47
[2022-08-07] MEDS ORDERED: cefTRIAXone 1 GM VIAL IVP STA (07:50)
[2022-08-07] MEDS ORDERED: HYDROmorphone 1 MG/ML CARPUJECT IVP STA (07:51)
[2022-08-07] MEDS ORDERED: CLINDAMYCIN 600 MG/50 ML 50 ML IV ONE (07:51)
[2022-08-07] MEDS ORDERED: KETOROLAC 15 MG/ML VIAL IVP STA (07:51)
[2022-08-07] MEDS ORDERED: SODIUM CHLORIDE 0.9% 1,000 ML IV STA (07:52)
[2022-08-07] MEDS ORDERED: iohexoL-300 100 ML VIAL ONE (08:16)
--- NOTE | 2022-08-07 10:09 | CT Report ---
PROCEDURE: UPPER EXTREMITY W - LT INDICATIONS: bursal elbow infection; ? abscess TECHNIQUE: CT images were obtained of the left upper extremity with contrast. Multiplanar reformats w ere obtained. COMPARISON: 08/05/2022 radiographs FINDINGS: Image quality: Good Bones: No displaced fracture. Normal alignment. Mild to moderate degenerative changes, with joint spa ce narrowing and osteophyte formation. There are also enthesophytes, particularly at the triceps danay chment. No osseous erosions identified. Soft tissues: Moderate soft tissue edema is seen along the dorsal medial forearm and torso upper arm. Soft tissue edema is most confluent at the olecranon near the triceps attachment. No ring-enhancing fluid collection is seen. IMPRESSION: No rim-enhancing fluid collection, however there is soft tissue infectious or inflammatory fat strand ing most confluent at the olecranon bursa near the triceps attachment, extending to the dorsal medial forearm, and also dorsal upper arm. Reviewed by: Miguel Ángel Curry MD on 08/07/2022 9:20 AM PDT Approved by: Miguel Ángel Curry MD on 08/07/2022 9:20 AM PDT Station ID: [id number]
[2022-08-07] MEDS ORDERED: diphenhydrAMINE INJ 50 MG/ML VIAL IVP STA (10:32)
[2022-08-07 11:47] VITALS: BP 107/68
[2022-08-07] MEDS ORDERED: iohexoL-300 100 ML VIAL IVP ONE (17:59)
== END 2022-08-07 11:47 | disposition home or self-care (01) ==
LOC: ED 05:35
DX: M71.122 Other infective bursitis, left elbow (principal); L03.114 Cellulitis of left upper limb; I10 Essential (primary) hypertension; E78.00 Pure hypercholesterolemia, unspecified; E10.9 Type 1 diabetes mellitus without complications; Z79.82 Long term (current) use of aspirin; Z79.84 Long term (current) use of oral hypoglycemic drugs; Z79.899 Other long term (current) drug therapy
CPT/HCPCS: 36415; 73201; 80048; 83605; 85025; 85651; 86140; 87070; 87205; 96365; 96375; 99284; J1170; J1200; Q9967

== ENCOUNTER 2023-10-17 09:37 | Outpatient (CLI) | payer MEDICARE ==
[2023-10-17 13:34] LABS: BASOPHILS % (AUTO) 0.5 %; EOSINOPHILS # (AUTO) 0.1 10^3/uL (0.0-0.7); EOSINOPHILS % (AUTO) 0.7 %; HCT - HEMATOCRIT 38.2 % (42.0-52.0); HGB - HEMOGLOBIN 12.1 g/dL (14.0-18.0); LYMPHOCYTES # (AUTO) 2.6 10^3/uL (1.5-3.5); LYMPHOCYTES % (AUTO) 34.4 %; MEAN CORPUSCULAR HEMOGLOBIN 27.9 pg (27.0-31.0); MEAN CORPUSCULAR HGB CONC 31.7 g/dL (32.0-36.0); MEAN CORPUSCULAR VOLUME 88.2 fL (80.0-94.0); MEAN PLATELET VOLUME 10.1 fL (7.4-11.4); MONOCYTES # (AUTO) 0.4 10^3/uL (0.0-1.0); NEUTROPHILS # (AUTO) 4.5 10^3/uL (1.5-6.6); NEUTROPHILS % (AUTO) 59.3 %; PLT - PLATELET COUNT 270 10^3/uL (130-450); RED BLOOD COUNT 4.33 10^6/uL (4.70-6.10); RED CELL DISTRIBUTION WIDTH 14.1 % (12.0-15.0); WHITE BLOOD COUNT 7.5 x10^3/uL (4.8-10.8)
[2023-10-17 13:44] LABS: ESTIMATED AVERAGE GLUCOSE 148 mg/dL (70-100); HEMOGLOBIN A1c% 6.8 % (4.27-6.07)
[2023-10-17 13:53] LABS: ALBUMIN 4.2 g/dL (3.2-5.5); ALBUMIN/GLOBULIN RATIO 1.4 (1.0-2.2); ALKALINE PHOSPHATASE 38 IU/L (42-121); ALT ALANINE AMINOTRANSFERASE 16 IU/L (10-60); AST ASPARTATE AMINOTRANSFERASE 19 IU/L (10-42); BILIRUBIN,TOTAL 0.5 mg/dL (0.2-1.0); BUN - BLOOD UREA NITROGEN 21 mg/dL (6-20); CALCIUM 9.3 mg/dL (8.5-10.3); CARBON DIOXIDE - CO2 29 mmol/L (21-32); CHLORIDE 104 mmol/L (101-111); CHOLESTEROL 191 mg/dL; CREATININE 1.1 mg/dL (0.6-1.3); GFR - MDRD 65 (>89); GLUCOSE 97 mg/dL (74-104); HDL CHOLESTEROL 38 mg/dL; LDL CHOLESTEROL,CALCULATED 132 mg/dL; LDL/HDL RATIO 3.5 (<3.6); POTASSIUM 3.9 mmol/L (3.5-4.5); SODIUM 139 mmol/L (135-145); TOTAL PROTEIN 7.1 g/dL (6.4-8.9); TRIGLYCERIDES 103 mg/dL (48-352); VLDL CHOLESTEROL 21 mg/dL
[2023-10-17 14:08] LABS: THYROID STIMULATING HORMONE 2.59 uIU/mL (0.34-5.60)
== END 2023-10-17 09:38 | disposition home or self-care (01) ==
LOC: LAB.N 09:37
DX: E11.42 Type 2 diabetes mellitus with diabetic polyneuropathy (principal); R03.0 Elevated blood-pressure reading, without diagnosis of hypertension; Z12.5 Encounter for screening for malignant neoplasm of prostate
CPT/HCPCS: 36415; 80053; 80061; 83036; 84443; 85025; G0103; 83721; 84153

== ENCOUNTER 2023-10-19 08:07 | Outpatient (CLI) | payer MEDICARE | END 2023-10-19 23:59 | disposition EMS.NT | LOC: EMS 08:07 | DX: I10 Essential (primary) hypertension (principal) ==